=== PATIENT | male | born 1965 | race Caucasian/White ===

== ENCOUNTER → 2022-05-03 11:40 | Outpatient (CLI) | payer BC, SELFPAY ==
[2022-05-03 12:36] LABS: COVID19 -Nasal RAPID Negative (Negative)
== END ==
PROVIDERS: Visit Provider Surgery
DX: Z20.822 Contact with and (suspected) exposure to COVID-19 (principal); Z01.812 Encounter for preprocedural laboratory examination
CPT/HCPCS: 87635; C9803

== ENCOUNTER 2022-05-04 10:00 | Day surgery (SDC) | payer BC, SELFPAY ==
[2022-04-30 08:22] VITALS: BMI 27.0
[2022-05-04] VITALS (8 sets, daily range): BP systolic 143–180; BP diastolic 90–115; PULSE 66–99; RESP 9–17; TEMP 36.2–36.6; O2SAT 92–98; BMI 27.0
[2022-05-04] MEDS: LACTATED RINGERS 1,000 ML 84 ML IV ×2 (10:44→12:50)
--- NOTE | 2022-05-04 11:28 | PM.HP.1 ---
History of Present Illness History of Present Illness Date Patient Seen: 05/04/22 Time Patient Seen: 11:28 Chief complaint: OPEN UMBILICAL HERNIA REPAIR W/MESH Narrative: Ed is here for his umbilical hernia repair. There are no changes to his health since we met in February. Patient History Medical History (Updated 04/30/22 @ 08:29 by Erica Parker RN) Anxiety Depression GERD (gastroesophageal reflux disease) HIV (human immunodeficiency virus infection) HLD (hyperlipidemia) HTN (hypertension) Pneumonia Surgical History (Updated 04/30/22 @ 08:29 by Erica Parker RN) H/O right inguinal hernia repair (2017) Family & Social History Social History: household members friend(s) Tobacco & Substance use: Smoking Status Never smoker alcohol intake current alcohol intake frequency a few times a week Substance Use Type does not use Meds Home Medications and Allergies Home Medications Medication Instructions Recorded Confirmed Type atorvastatin 20 mg tablet 20 mg PO DAILY 03/17/22 05/04/22 History cholecalciferol (vitamin D3) 125 125 mcg PO DAILY 03/17/22 05/04/22 History mcg (5,000 unit) capsule citalopram 10 mg tablet 10 mg PO DAILY 03/17/22 05/04/22 History dolutegravir 50 mg-lamivudine 300 1 tab PO DAILY 03/17/22 05/04/22 History mg tablet (Dovato) lamotrigine 200 mg tablet 200 mg PO DAILY 03/17/22 05/04/22 History lisinopril 40 mg tablet 40 mg PO DAILY 03/17/22 05/04/22 History multivitamin (Daily Multi-Vitamin 1 tab PO DAILY 03/17/22 05/04/22 History tablet) omeprazole 20 mg capsule,delayed 20 mg PO DAILY 03/17/22 05/04/22 History release Allergies Allergy/AdvReac Type Severity Reaction Status Date / Time Opioids - Morphine Analogues AdvReac Nausea and Verified 05/04/22 10:36 vomiting Exam Vital Signs (past 8 hours): - 05/04/22 10:26 Temperature 97.1 F L Pulse Rate 66 Respiratory Rate 16 Blood Pressure 157/90 H Pulse Oximetry 96 Oxygen Delivery Method Room Air Oxygen Delivery Method Room Air Narrative Exam Narrative: Reducible umbilical hernia Assessment & Plan Assessment and plan (1) Umbilical hernia: Qualifiers: Obstruction and gangrene presence: without obstruction or gangrene Qualified Code(s): K42.9 - Umbilical hernia without obstruction or gangrene Status: Acute Plan We will proceed with an open umbilical hernia repair with mesh Time Spent With Patient Critical Care time: I spent a total of [] minutes of critical care time on this patient's care today; this time is exclusive of procedural time.
[2022-05-04] MEDS: CEFAZOLIN 2 GM/100 ML PREMIX 100 ML IV (12:05)
[2022-05-04] MEDS: LIDOCAINE 1% 20 ML INJ (12:21)
[2022-05-04] MEDS: BUPIVACAINE 0.25% (PF) VIAL 30 ML INJ (12:22)
[2022-05-04] MEDS: EPINEPHrine 1 MG/ML 0.15 MG IM (12:31)
--- NOTE | 2022-05-04 12:32 | SUR.OPER ---
Supine on padded OR bed, head on pillow, arms secured on padded arm boards at <90 degrees abduction, legs uncrossed, safety belt at thigh, tape over blanket over lower legs.
--- NOTE | 2022-05-04 13:23 | P.OP_ITS ---
Operative Date/Time/Diagnoses Date of procedure: 05/04/22 Time of procedure: 13:23 Pre-op diagnosis: Umbilical hernia Post-op diagnosis: same Procedure & Clinicians Procedure: Open umbilical hernia repair with mesh Same procedure as scheduled: Yes Surgeon: Syd Guerra Operative Notes Procedure in detail: Ancef was administered. The patient was brought to the operating room, placed on the table in the supine position and general endotracheal anesthesia was induced. The abdomen was prepped and draped in the usual fashion. A time-out was performed. A 4 cm curvilinear incision was made inferior to the umbilicus. The hernia was dissected free from the surrounding subcutaneous adipose tissue. The sac was dissected off the umbilical stalk using a combination of cautery, sharp and blunt dissection. The hernia appeared to contain only preperitoneal fat. The hernia was dissected free from the fascial ring and allowed to drop back down into the abdomen. The fascia was then closed transversely with multiple interrupted 0 Ethibond sutures. The subcutaneous adipose tissue was c leared off of the anterior sheath circumferentially about 2 cm in each direction. A piece of polypropylene mesh was trimmed to fit over the fascial closure and secured with Tisseel. Once the Tisseel was dried the umbilical skin was tacked down to the fascia just inferior to the mesh edge with a single 3-0 Vicryl stitch. The skin was closed with multiple interrupted 3-0 Vicryl dermal sutures followed by a running 4 Monocryl subcuticular closure. Steri-Strips were applied and an abdominal binder was applied. EBL: 5 mL Post-operative Condition: stable Disposition: PACU
--- NOTE | 2022-05-04 14:57 | SUR.PHASEII ---
Patient ambulated to wheelchair with steady gait. Tolerated PO fluids. Provided patient with verbal/written discharge instructions. Patient stated understanding. Discharged patient by wheelchair to private vehicle in stable condition. See flowsheet for details.
== END 2022-05-04 14:32 | disposition home or self-care (01) ==
PROVIDERS: Referring Provider Surgery; Visit Provider Surgery
PROC: (CPT 49585; principal; 2022-05-04 11:15)
DX: K42.9 Umbilical hernia without obstruction or gangrene (principal); B20 Human immunodeficiency virus [HIV] disease; Z79.899 Other long term (current) drug therapy; E78.5 Hyperlipidemia, unspecified; I10 Essential (primary) hypertension; K21.9 Gastro-esophageal reflux disease without esophagitis
CPT/HCPCS: 49585; J0171; J0690; J1100; J2250; J2405; J2704; J3010

== ENCOUNTER → 2023-10-27 14:55 | Outpatient (ROUT) | payer BC, SELFPAY | PROVIDERS: Visit Provider Dermatology | DX: D48.5 Neoplasm of uncertain behavior of skin (principal) | CPT/HCPCS: 87070; 87075; 87077; 87147; 87205 ==